=== PATIENT | female | born 1955 | race Caucasian/White ===

== ENCOUNTER → 2024-01-11 08:38 | Outpatient (REF) | payer OTHER, SELFPAY | LOC: MRI 3T 08:38 | PROVIDERS: ATTENDING PHYSICIAN Podiatrist Foot Surgery; FAMILY PHYSICIAN Internal Medicine | DX: G57.60 Lesion of plantar nerve, unspecified lower limb (principal) | CPT/HCPCS: 73718 ==

== ENCOUNTER → 2024-07-23 15:01 | Outpatient (REF) | payer OTHER, SELFPAY | LOC: RAD 15:01 | PROVIDERS: ATTENDING PHYSICIAN Internal Medicine; FAMILY PHYSICIAN Internal Medicine | DX: R07.9 Chest pain, unspecified (principal) | CPT/HCPCS: 71046 ==

== ENCOUNTER → 2024-07-27 13:58 | Outpatient (REF) | payer OTHER, SELFPAY | LOC: HWRAD 13:58 | PROVIDERS: ATTENDING PHYSICIAN Internal Medicine; FAMILY PHYSICIAN Internal Medicine | DX: R22.2 Localized swelling, mass and lump, trunk (principal) | CPT/HCPCS: 71260; Q9967 ==

== ENCOUNTER → 2024-08-24 07:51 | Outpatient (REF) | payer OTHER, SELFPAY | LOC: HWRAD 07:51 | PROVIDERS: ATTENDING PHYSICIAN Nurse Practitioner Adult Health; FAMILY PHYSICIAN Internal Medicine | DX: R91.8 Other nonspecific abnormal finding of lung field (principal) | CPT/HCPCS: 71250 ==

== ENCOUNTER 2024-08-30 06:28 | Day surgery (SDC) | payer OTHER, SELFPAY ==
[2024-08-26 11:22] LABS: INR 1.04; PT 13.6 Sec (11.4-14.6)
[2024-08-26 11:23] LABS: APTT 32.7 Sec (23.4-35.0)
[2024-08-26 12:32] VITALS: BMI 28.9
[2024-08-30] VITALS (11 sets, daily range): BP systolic 114–144; BP diastolic 56–71; BMI 28.9
--- NOTE | 2024-08-30 11:40 | PTCARENOTE ---
Dr. Platt aware of portable CXR results. OK for discharge.
== END 2024-08-30 12:09 | disposition home or self-care (01) ==
LOC: SDS 06:28
PROVIDERS: ATTENDING PHYSICIAN Internal Medicine Critical Care Medicine; FAMILY PHYSICIAN Internal Medicine
DX: D14.31 Benign neoplasm of right bronchus and lung (principal); R91.1 Solitary pulmonary nodule
CPT/HCPCS: 31652; 31623; 31625; 31624; 31654; 31627; 88172; 88173; 88305; 36415; 71045; 76000; 85610; 85730; 87015; 87070; 87102; 87116; 87205; 88112; 88333; 88334; 88341; 88342; 93005; 94640; C1887

== ENCOUNTER → 2024-10-29 11:49 | Outpatient (REF) | payer OTHER, SELFPAY | LOC: WDC 11:49 | PROVIDERS: ATTENDING PHYSICIAN Internal Medicine | DX: Z12.31 Encounter for screening mammogram for malignant neoplasm of breast (principal) | CPT/HCPCS: 77063; 77067 ==

== ENCOUNTER → 2024-11-22 09:18 | Outpatient (REF) | payer OTHER, SELFPAY | LOC: HWRAD 09:18 | PROVIDERS: ATTENDING PHYSICIAN Internal Medicine Critical Care Medicine; FAMILY PHYSICIAN Internal Medicine; REFERRING PHYSICIAN Internal Medicine | DX: R93.89 Abnormal findings on diagnostic imaging of other specified body structures (principal); R91.1 Solitary pulmonary nodule | CPT/HCPCS: 71250 ==

== ENCOUNTER → 2025-02-16 16:00 | Outpatient (REF) | payer OTHER, SELFPAY | LOC: RAD 16:00 | PROVIDERS: ATTENDING PHYSICIAN Family Medicine; FAMILY PHYSICIAN Internal Medicine | DX: S80.02XA Contusion of left knee, initial encounter (principal); S80.01XA Contusion of right knee, initial encounter | CPT/HCPCS: 73560 ==

== ENCOUNTER → 2025-06-13 13:23 | Outpatient (REF) | payer OTHER, SELFPAY | LOC: HWRAD 13:23 | PROVIDERS: ATTENDING PHYSICIAN Internal Medicine Critical Care Medicine; FAMILY PHYSICIAN Internal Medicine | DX: R93.89 Abnormal findings on diagnostic imaging of other specified body structures (principal); R91.1 Solitary pulmonary nodule | CPT/HCPCS: 71250 ==